=== PATIENT | female | born 1985 | race Caucasian/White ===

== ENCOUNTER 2017-07-05 09:45 | Emergency (ER) | payer BC ==
[~2017-07-05] VITALS: Ht 162.6 cm; Wt 67.9 kg
[2017-07-05 09:52] VITALS: Ht 162.6 cm; Wt 67.9 kg
[2017-07-05] MEDS ORDERED: SODIUM CHLORIDE 0.9% 1000ML 1,000 ML IV STA (10:22)
[2017-07-05] MEDS ORDERED: MoRPHine SULFATE 4 MG/ML 1 ML CARP\\VIAL IV STA (10:22)
[2017-07-05] MEDS ORDERED: ONDANSETRON INJ 2 MG/ML 2 ML VIAL IV STA (10:22)
[2017-07-05 10:41] LABS: URINE APPEARANCE CLEAR (CLEAR); URINE BILIRUBIN NEG (NEG); URINE COLOR YELLOW; URINE NITRITE NEG (NEG); URINE SPECIFIC GRAVITY 1.011 (1.000-1.030); UROBILINOGEN NEG (NEG)
[2017-07-05 10:43] LABS: MANUAL MICROSCOPIC REQUIRED? NO; REVIEW REQ? NO
[2017-07-05 10:55] LABS: BASO % 0.4 %; BASO ABS # 0.02 K/uL (0-0.2); COMPLETE YES; EOS % 0.2 %; HEMATOCRIT 41.7 % (37-47); IG% 0.4 %; LYMPH % 27.3 %; MEAN CELL VOLUME 89.7 fL (80-100); MEAN CORPUSCULAR HEMOGLOBIN 32.3 pg (25-34); MEAN PLATELET VOLUME 9.8 fL (7.4-10.4); MONO % 6.4 %; NEUT % 65.3 %; PLATELET COUNT 216 K/uL (130-400); RED BLOOD COUNT 4.65 M/uL (4.2-5.4); WHITE BLOOD COUNT 5.12 K/uL (4.8-10.8)
[2017-07-05 11:14] LABS: PREG INTERNAL POSITIVE QC POS CONTROL LINE
[2017-07-05 11:15] LABS: PREG INTERNAL NEGATIVE QC NEG CLEAR BACKGROUND
[2017-07-05 11:19] LABS: CREATININE 0.74 mg/dl (0.60-1.20); POTASSIUM 3.7 mmol/L (3.5-5.1)
[2017-07-05] MEDS ORDERED: OPTIRAY 320 IV PRN (11:45)
[2017-07-05] MEDS ORDERED: PATIENT'S ALLERGY INFO NEEDS ENTERED SCH (12:00)
[2017-07-05] MEDS ORDERED: MoRPHine SULFATE 10 MG/ML CARP/VIAL IM STA (12:10)
[2017-07-05] MEDS ORDERED: PROMETHAZINE HCL INJ 25 MG in SODIUM CHLORIDE 0.9% 50ML 50 ML IV STA (12:10)
[2017-07-05] MEDS ORDERED: MoRPHine SULFATE 10 MG/ML CARP/VIAL IV STA (12:37)
[2017-07-05] MEDS ORDERED: SUCRALFATE 1 GM/10 ML UDC PO ONE (13:30)
[2017-07-05] MEDS ORDERED: GI COCKTAIL PO ONE (13:30)
--- NOTE | 2017-07-05 13:59 | DIAGNOSTIC IMAGING REPORT ---
ABD/PELVIS IV CONTRAST ONLY CT DOSE: 380.73 mGy.cm HISTORY: Pain upper abd pain on right; s/p tyshawn TECHNIQUE: Multiaxial CT images of the abdomen and pelvis were performed following the use of intravenous contrast. A dose lowering technique was utilized adhering to the principles of ALARA. COMPARISON STUDY: None. FINDINGS: Lung bases are clear. Liver is uniform in appearance. There has been a cholecystectomy. Pancreas is unremarkable as is the spleen. Kidneys enhance uniformly. There are negative for hydronephrosis. Bowel pattern is considered nonobstructive. There is probably mild increase in fecal load within the a sending colon as well as sigmoid. There is no evidence for fecal impaction. There is 2.5 cm complex and a partially hemorrhagic right ovarian cyst. There is trace amount of free fluid within the pelvic cul-de-sac. Bladder is midline. IMPRESSION: 1. 2.5 cm partially complex and/or partially hemorrhagic right ovarian cyst.. 2. Nonobstructive bowel pattern although in increase in fecal load is identified within the cecum and a sending colon. 3. Otherwise negative study post cholecystectomy. The above report was generated using voice recognition software. It may contain grammatical, syntax or spelling errors. Electronically signed by: Ramón Sarabia M.D. 07/05/2017 1:57 PM Dictated Date/Time: 07/05/2017 1:55 PM
[2017-07-05] MEDS ORDERED: MAGNESIUM CITRATE 296 ML/BTL PO ONE (14:30)
[2017-07-05] MEDS ORDERED: PRLSR20 PO (14:39)
[2017-07-05] MEDS ORDERED: ALUMINUM/MAGNESIUM SUSP 30 ML UDC ONE (15:02)
[2017-07-05] MEDS ORDERED: LIDOCAINE HCL 2% VISC SOLN 20 ML UDC ONE (15:02)
[2017-07-05 15:16] VITALS: BP 112/73; PULSE 68; TEMP 37; O2SAT 93
--- NOTE | 2017-07-05 16:59 | EMERGENCY ROOM VISIT NOTE ---
ED Visit Note First contact with patient: 09:57 Chief Complaint: Right sided abdominal pain. History of Present Illness: Ms. Dowell is a 31 year-old white female who ambulates into the ED accompanied by her complaining of mid right quadrant abdominal pain. Historically patient reports that is postcholecystectomy. Patient reports she' s been evaluated by multiple professionals over the last few weeks. She was seen at the [facility] ED twice in the last week one for palpitations with no definitive cause and once for right sided abdominal pain without a cause. She also reports she was seen by her MACHINE LOAD CLERK doctor which a pelvic ultrasound showed that her right ovary was attached to her uterus and she had a fibroid. She was seen by her radiologist to ultrasound her thyroid for elevated TSH and no lesion was found. Additionally she was seen by a grip wrapper for an echocardiogram and results are pending. Patient reports a acute onset of mid right quadrant abdominal pain that started approximately 2 weeks ago. Since that time the pain has been on stent. She is unable to describe her baseline pain but does report that it does slightly increase and become sharp. Her pain does slightly radiate around to the lateral aspect of the abdomen and into the thoracic back. Her pain worsens with movements of her abdomen. She has not identified any alleviating factors related to the pain. Associated with her pain she reports she feels like she has enlargement around her rectal area that was slightly relieved when she had a large bowel movement. Additionally she reports she has to strain to move her stool. She also notes a decrease in appetite and reports she has not been able to sleep the last 2 nights because of her symptoms. She reports that she currently has stopped all of her medications because she did not feel they were helping and has not taken any additional medications for her symptoms. Patient denies fevers, chills, sweats, skin eruptions, skin color changes, upper respiratory tract symptoms, shortness of breath, chest pain, nausea, vomiting, diarrhea, rectal bleeding, black/tarry stools, urinary symptoms, hematuria, vaginal bleeding, vaginal discharge. Review of Systems: As noted above in history of present illness. All body systems were reviewed and found to be negative as noted above. Past Medical History: As noted above, depression, status post EGD, section 2, tubal ligation, unspecified dental surgery. Current Medications: Citalopram, Naprosyn and metoprolol. Allergies to Medications: Patient denies. Social History: Patient is not currently employed; she feels safe in her home environment; she denies tobacco use and alcohol use. Physical Examination: Vital Signs: Date Time Temp Pulse Resp B/P (MAP) Pulse Ox O2 Delivery O2 Flow Rate FiO2 07/05/17 15:16 37.0 68 16 112/73 93 07/05/17 13:57 112/73 07/05/17 13:15 68 16 93 07/05/17 12:45 64 7 96 07/05/17 12:32 67 07/05/17 12:30 68 18 128/60 93 Room Air 07/05/17 12:28 128/80 07/05/17 11:30 92 18 110/77 98 Room Air 07/05/17 09:52 37.0 95 18 128/80 98 Room Air GENERAL: 31-year-old female in mild to moderate distress due to pain, nontoxic- appearing, afebrile and hemodynamically stable. NEUROLOGICAL: Awake, alert and oriented to person, place and time. Answering questions appropriately and following commands. Normal gait. Good hand eye coordination. SKIN: Warm, dry and pink. No soft tissue eruptions or trauma noted. HEENT: Atraumatic and normocephalic. PERRLA. Sclera white and conjunctiva pink. Oral cavity moist and pink. Pharynx is nonerythematous or edematous. Speech normal. No lymphadenopathy. Trachea midline. No jugular venous distention. BACK: No tenderness over the bony spine. No CVA tenderness. THORAX: Lungs sounds are clear to auscultation and equal bilaterally with symmetrical chest wall. No wheezing, rales or rhonchi. No crepitus, tenderness , subcutaneous air or deformities noted. HEART: Regular rate and rhythm. No gallops, rubs or murmurs are appreciated. ABDOMEN: Flat, soft and nontender. Positive bowel sounds in all quadrants. No guarding, rigidity or organomegaly. RECTUM: Small external hemorrhoid noted at the 7 o'clock position. No active bleeding. No local erythema or edema. Normal rectal tone. No palpable rectal masses. Heme-negative stools. EXTREMITIES: Moves all extremities well on command and with purpose. All distal neurovascular statuses are intact and equal bilaterally. ED Course: Patient is assessed as noted above. Laboratory Testing: Test 07/05/17 10:25 Range/Units White Blood Count 5.12 4.8-10.8 K/uL Red Blood Count 4.65 4.2-5.4 M/uL Hemoglobin 15.0 12.0-16.0 g/dL Hematocrit 41.7 37-47 % Mean Corpuscular Volume 89.7 80-100 fL Mean Corpuscular Hemoglobin 32.3 25-34 pg Mean Corpuscular Hemoglobin Concent 36.0 32-36 g/dl Platelet Count 216 130-400 K/uL Mean Platelet Volume 9.8 7.4-10.4 fL Neutrophils (%) (Auto) 65.3 % Lymphocytes (%) (Auto) 27.3 % Monocytes (%) (Auto) 6.4 % Eosinophils (%) (Auto) 0.2 % Basophils (%) (Auto) 0.4 % Neutrophils # (Auto) 3.34 1.4-6.5 K/uL Lymphocytes # (Auto) 1.40 1.2-3.4 K/uL Monocytes # (Auto) 0.33 0.11-0.59 K/uL Eosinophils # (Auto) 0.01 0-0.5 K/uL Basophils # (Auto) 0.02 0-0.2 K/uL RDW Standard Deviation 39.1 36.4-46.3 fL RDW Coefficient of Variation 12.1 11.5-14.5 % Immature Granulocyte % (Auto) 0.4 % Immature Granulocyte # (Auto) 0.02 0.00-0.02 K/uL Urine Color YELLOW Urine Appearance CLEAR CLEAR Urine pH 7.0 4.5-7.5 Urine Specific [place] 1.011 1.000-1.030 Urine Protein NEG NEG Urine Glucose (UA) NEG NEG Urine Ketones TRACE NEG Urine Occult Blood NEG NEG Urine Nitrite NEG NEG Urine Bilirubin NEG NEG Urine Urobilinogen NEG NEG Urine Leukocyte Esterase NEG NEG Sodium Level 136 136-145 mmol/L Potassium Level 3.7 3.5-5.1 mmol/L Chloride Level 101 98-107 mmol/L Carbon Dioxide Level 25 21-32 mmol/L Anion Gap 10.0 3-11 mmol/L Blood Urea Nitrogen 10 7-18 mg/dl Creatinine 0.74 0.60-1.20 mg/dl Est Creatinine Clear Calc Drug Dose 103.4 ml/min Estimated GFR () 124.2 Estimated GFR (Non- 107.2 BUN/Creatinine Ratio 13.0 10-20 Random Glucose 97 70-99 mg/dl Calcium Level 9.0 8.5-10.1 mg/dl Total Bilirubin 0.8 0.2-1 mg/dl Direct Bilirubin 0.2 0-0.2 mg/dl Aspartate Amino Transf (AST/SGOT) 21 15-37 U/L Alanine Aminotransferase (ALT/SGPT) 29 12-78 U/L Alkaline Phosphatase 62 45-117 U/L Total Protein 8.3 6.4-8.2 gm/dl Albumin 4.1 3.4-5.0 gm/dl Lipase 208 73-393 U/L Human Chorionic Gonadotropin, Qual NEG NEG IV contrast abdominal/pelvic CT: Was reviewed by myself and read by the radiologist and shows a 2.5 cm partially complex/partially hemorrhagic right ovarian cyst, nonobstructive bowel gas pattern with increased fecal load in the cecum and ascending colon, trace amount of free pelvic fluid. Patient was hydrated with normal saline and initially received 4 mg of Zofran IV and 4 mg of morphine IV. Patient was reassessed multiple times during her stay in the emergency department. She did have exacerbation of her pain and nausea and received 6 mg of morphine and 25 mg of Phenergan. Patient's case was reviewed with Dr. Hernández; we agreed on diagnostic approach , treatment, disposition and plan. I did had a lengthy conversation with the patient and she reports that had an EGD that showed some esophageal inflammation. She was on Prilosec for short amount of time and was taken off after her colonoscopy and felt that the inflammation would go down. Patient was given a GI cocktail and 1 g of Carafate by mouth for her symptoms. Additionally patient received 150 mg of magnesium citrate by mouth for her increased fecal load. Patient was educated about today's findings and instructed on her treatment plan ; she verbalized understanding and agreement with this plan. Clinical Impression: Right sided abdominal pain. Increased constipation. Decision-Making: Initially my differential diagnosis I considered retained stone , small bowel obstruction, perforated viscus, colitis, constipation, esophageal reflux and other causes. Disposition: Patient discharged home in stable condition accompanied by her ; prior to departure she was reassessed and subjectively reported she was feeling much better and was pain-free. Plan: Patient was encouraged to keep your upcoming appointment with cardiology for review of her echocardiogram. Patient is encouraged to follow-up with her MACHINE LOAD CLERK for her ultrasound results. Patient was encouraged use 650 mg of acetaminophen every 6 hours as needed for pain and avoid gastric irritants. Patient was encouraged use Colace twice a day and increase dietary fiber/ vegetables. Patient was encouraged to take the second half of her mag citrate she did not have a large bowel movement within 4 hours. Patient is encouraged to stay well-hydrated. Patient was prescribed omeprazole 20 mg once a day. Patient is encouraged to continue her metoprolol as prescribed. Patient was encouraged to follow-up with her stone fabricator who did her EGD. Patient is encouraged to follow-up with family physician for recheck in 4-5 days. Patient was encouraged return ED for worsening symptoms, fevers, bloody stool, bloody vomitus or any new/concerning symptoms.
== END 2017-07-05 15:17 | disposition home or self-care (01) ==
LOC: C.EDB 09:48
DX: R10.9 Unspecified abdominal pain (principal); K59.00 Constipation, unspecified; K64.4 Residual hemorrhoidal skin tags; Z90.49 Acquired absence of other specified parts of digestive tract

== ENCOUNTER → 2017-10-18 | Outpatient (CLI) | payer BC | END | disposition home or self-care (01) | LOC: C.LABMFLN 11:19 | PROVIDERS: ATTEND Internal Medicine Endocrinology, Diabetes & Metabolism | DX: E06.3 Autoimmune thyroiditis (principal); E03.9 Hypothyroidism, unspecified ==

== ENCOUNTER 2023-02-24 07:24 | Inpatient (IN) ==
[2023-02-24] MEDS ORDERED: SODIUM CHLORIDE 0.9% 1000ML 1,000 ML IV STA (07:48)
[2023-02-24] MEDS ORDERED: MoRPHine SULFATE 4 MG/ML 1 ML CARP\\VIAL IV STA (07:48)
[2023-02-24] MEDS ORDERED: ONDANSETRON INJ 2 MG/ML 2 ML VIAL IV STA (07:48)
[2023-02-24 08:25] LABS: Basophils # (auto) 0.03 K/uL (0-0.2); Basophils % (auto) 0.3 %; Hematocrit (blood only) 44.4 % (37.0-47.0); Hemoglobin 15.9 g/dl (12.0-16.0); Immature Granulocytes # (auto) 0.05 K/uL (0.01-0.20); Immature Granulocytes % (auto) 0.5 %; Lymphocytes # (auto) 0.94 K/uL (1.2-3.4); Mean Corpuscular Hemoglobin 32.5 pg (25.0-34.0); Mean Corpuscular Hgb Conc 35.8 g/dL (32.0-36.0); Mean Corpuscular Volume 90.8 fL (80.0-100.0); Mean Platelet Volume 9.8 fL (9.4-12.4); Monocytes # (auto) 0.36 K/uL (0.11-0.59); Monocytes % (auto) 3.8 %; Neutrophils # (auto) 8.01 K/uL (1.40-6.50); Neutrophils % (auto) 85.4 %; Platelet Count 258 K/uL (130-400); RDW Coefficient of Variation 11.4 % (11.5-14.5); RDW Standard Deviation 37.8 fL (36.4-46.3); Red Blood Count 4.89 M/uL (4.20-5.40); White Blood Count 9.39 K/ul (4.8-10.8)
--- NOTE | 2023-02-24 08:25 | Emergency Department Note ---
ED Provider Note History of Present Illness Chief Complaint: Abdominal Pain Stated Complaint: LEFT SIDED ABDOMINAL PAIN Time Seen by Provider: 02/24/23 07:34 37-year-old female who presents to the emergency department with her for evaluation of left lower quadrant and lower abdominal pain. The patient reports that the pain started to develop yesterday morning. The patient does have history of constipation, and did try to take some milk of magnesia which provided some relief. She also tried some Gas-X, Pepcid and Pepto-Bismol without relief. The patient reports that the pain initially was intermittent in nature, and is now constant. She denies any alleviating or aggravating factors for the pain. She has a sensation like she does have to have a bowel movement and urinate. She denies any other recent urinary symptoms, tarry/black stools or bloody stools. The patient reports that her stools are yellowish in appea meghan. Patient reports a prior history of adhesions secondary to history of 2 prior C-sections and subsequent hysterectomy. The patient has also followed with [facility] gastroenterology, with a recent colonoscopy showing internal and external hemorrhoids. When asked if she was advised that she had any diverticula, she does not recall. The patient currently rates her discomfort an 8 out of 10. The patient did have similar symptoms a little over 4 months ago, and was seen at the [facility] emergency department. Home Medications Medication Instructions Recorded Confirmed Type inulin 2 gram chewable tablet 4 g PO QAM 02/24/23 02/24/23 History (Fiber Gummies) lactobacillus combination no.4 3 3,000 mmu cells PO DAILY 02/24/23 02/24/23 History billion cell capsule (Probiotic) linaclotide 145 mcg capsule 145 mcg PO DAILY 02/24/23 02/24/23 History (Linzess) -omn-nxo-other [id number] 2 cap PO QAM 02/24/23 02/24/23 History oil 350 mg- 400 mg capsule omeprazole 20 mg capsule,delayed 40 mg PO QAM 02/24/23 02/24/23 History release potassium chloride 10 mEq 25 meq PO DAILY 02/24/23 02/24/23 History tablet,extended release Allergies Allergy/AdvReac Type Severity Reaction Status Date / Time adhesive Allergy Unknown blister Verified 02/24/23 10:30 Past Med/Surg History Medical History Radha's thyroiditis Hypothyroidism Intra-abdominal adhesions Surgical History History of 2 sections History of partial hysterectomy Hx of cholecystectomy S/P laparoscopic procedure adhesion release Social History (Updated 02/24/23 @ 08:24 by Nixon Resendiz) Smoking Status: Never smoker Preferred Language: Andorran marital status: Current Living Situation: Spouse and Family current occupational status: employed Feels Safe at Home: Yes Physical Exam Vital Signs Vital Signs - 24 hr 02/24/23 07:29 02/24/23 07:25 02/24/23 08:33 Temperature 36.7 C Temperature Source Oral Pulse Rate 96 H 70 Pulse Rate [Apical] 76 Pulse Rate from SpO2 Sensor Respiratory Rate 18 22 Respiratory Effort / Characteristics Non-Labored Spontaneous Non-Labored Respiratory Depth Normal Normal Respiratory Pattern Regular Blood Pressure 148/84 H Blood Pressure [Right Arm] 133/85 Blood Pressure Mean 105 Blood Pressure Mean [Right Arm] 101 Pulse Oximetry 99 97 Oxygen Delivery Method Room Air Room Air Sepsis Recent Fever Within 48 Hours No Sepsis New/Unexplained Change in Mental Status N/A Sepsis Action Taken by Nursing No Action Required 02/24/23 09:25 02/24/23 08:19 02/24/23 08:20 Temperature Temperature Source Pulse Rate 78 75 Pulse Rate [Apical] 82 Pulse Rate from SpO2 Sensor 77 74 Respiratory Rate 12 22 14 Respiratory Effort / Characteristics Respiratory Depth Normal Respiratory Pattern Blood Pressure Blood Pressure [Right Arm] 135/88 Blood Pressure Mean Blood Pressure Mean [Right Arm] 103 Pulse Oximetry 98 95 97 Oxygen Delivery Method Room Air Sepsis Recent Fever Within 48 Hours Sepsis New/Unexplained Change in Mental Status Sepsis Action Taken by Nursing 02/24/23 08:31 02/24/23 08:31 02/24/23 08:40 Temperature Temperature Source Pulse Rate 80 71 Pulse Rate [Apical] Pulse Rate from SpO2 Sensor 70 Respiratory Rate 13 15 Respiratory Effort / Characteristics Respiratory Depth Respiratory Pattern Blood Pressure 139/85 Blood Pressure [Right Arm] Blood Pressure Mean 95 Blood Pressure Mean [Right Arm] Pulse Oximetry 99 Oxygen Delivery Method Sepsis Recent Fever Within 48 Hours Sepsis New/Unexplained Change in Mental Status Sepsis Action Taken by Nursing 02/24/23 08:45 02/24/23 08:45 02/24/23 08:50 Temperature Temperature Source Pulse Rate 73 79 Pulse Rate [Apical] Pulse Rate from SpO2 Sensor 74 77 Respiratory Rate 22 23 Respiratory Effort / Characteristics Respiratory Depth Respiratory Pattern Blood Pressure 135/88 Blood Pressure [Right Arm] Blood Pressure Mean 105 Blood Pressure Mean [Right Arm] Pulse Oximetry 100 100 Oxygen Delivery Method Sepsis Recent Fever Within 48 Hours Sepsis New/Unexplained Change in Mental Status Sepsis Action Taken by Nursing 02/24/23 09:00 02/24/23 09:10 02/24/23 09:20 Temperature Temperature Source Pulse Rate 69 68 73 Pulse Rate [Apical] Pulse Rate from SpO2 Sensor 68 68 73 Respiratory Rate 23 21 24 Respiratory Effort / Characteristics Respiratory Depth Respiratory Pattern Blood Pressure Blood Pressure [Right Arm] Blood Pressure Mean Blood Pressure Mean [Right Arm] Pulse Oximetry 100 100 100 Oxygen Delivery Method Sepsis Recent Fever Within 48 Hours Sepsis New/Unexplained Change in Mental Status Sepsis Action Taken by Nursing 02/24/23 09:41 02/24/23 09:50 02/24/23 10:00 Temperature Temperature Source Pulse Rate 76 76 Pulse Rate [Apical] Pulse Rate from SpO2 Sensor 73 76 77 Respiratory Rate 18 18 Respiratory Effort / Characteristics Respiratory Depth Respiratory Pattern Blood Pressure Blood Pressure [Right Arm] Blood Pressure Mean Blood Pressure Mean [Right Arm] Pulse Oximetry 100 97 99 Oxygen Delivery Method Sepsis Recent Fever Within 48 Hours Sepsis New/Unexplained Change in Mental Status Sepsis Action Taken by Nursing 02/24/23 10:10 02/24/23 10:20 02/24/23 10:30 Temperature Temperature Source Pulse Rate 74 73 73 Pulse Rate [Apical] Pulse Rate from SpO2 Sensor 76 73 71 Respiratory Rate 20 15 12 Respiratory Effort / Characteristics Respiratory Depth Respiratory Pattern Blood Pressure Blood Pressure [Right Arm] Blood Pressure Mean Blood Pressure Mean [Right Arm] Pulse Oximetry 99 100 98 Oxygen Delivery Method Sepsis Recent Fever Within 48 Hours Sepsis New/Unexplained Change in Mental Status Sepsis Action Taken by Nursing 02/24/23 10:40 02/24/23 10:50 02/24/23 11:00 Temperature Temperature Source Pulse Rate 68 63 59 L Pulse Rate [Apical] Pulse Rate from SpO2 Sensor 67 64 60 Respiratory Rate 14 13 13 Respiratory Effort / Characteristics Respiratory Depth Respiratory Pattern Blood Pressure Blood Pressure [Right Arm] Blood Pressure Mean Blood Pressure Mean [Right Arm] Pulse Oximetry 98 97 97 Oxygen Delivery Method Sepsis Recent Fever Within 48 Hours Sepsis New/Unexplained Change in Mental Status Sepsis Action Taken by Nursing 02/24/23 11:10 02/24/23 11:11 02/24/23 11:11 Temperature Temperature Source Pulse Rate 67 Pulse Rate [Apical] Pulse Rate from SpO2 Sensor 71 68 Respiratory Rate 16 Respiratory Effort / Characteristics Respiratory Depth Respiratory Pattern Blood Pressure 113/70 Blood Pressure [Right Arm] Blood Pressure Mean 76 Blood Pressure Mean [Right Arm] Pulse Oximetry 98 96 Oxygen Delivery Method Sepsis Recent Fever Within 48 Hours Sepsis New/Unexplained Change in Mental Status Sepsis Action Taken by Nursing 02/24/23 13:00 02/24/23 11:20 02/24/23 11:30 Temperature Temperature Source Pulse Rate 76 66 66 Pulse Rate [Apical] Pulse Rate from SpO2 Sensor 76 66 65 Respiratory Rate 16 14 14 Respiratory Effort / Characteristics Respiratory Depth Respiratory Pattern Blood Pressure 110/72 Blood Pressure [Right Arm] Blood Pressure Mean 84 Blood Pressure Mean [Right Arm] Pulse Oximetry 97 97 97 Oxygen Delivery Method Room Air Sepsis Recent Fever Within 48 Hours Sepsis New/Unexplained Change in Mental Status Sepsis Action Taken by Nursing 02/24/23 11:40 02/24/23 12:27 02/24/23 12:30 Temperature Temperature Source Pulse Rate 68 62 Pulse Rate [Apical] Pulse Rate from SpO2 Sensor 68 62 Respiratory Rate 17 20 Respiratory Effort / Characteristics Respiratory Depth Respiratory Pattern Blood Pressure 110/72 Blood Pressure [Right Arm] Blood Pressure Mean 81 Blood Pressure Mean [Right Arm] Pulse Oximetry 97 99 Oxygen Delivery Method Sepsis Recent Fever Within 48 Hours Sepsis New/Unexplained Change in Mental Status Sepsis Action Taken by Nursing 02/24/23 12:40 02/24/23 12:50 02/24/23 13:00 Temperature Temperature Source Pulse Rate 64 61 78 Pulse Rate [Apical] Pulse Rate from SpO2 Sensor 62 62 79 Respiratory Rate 14 14 17 Respiratory Effort / Characteristics Respiratory Depth Respiratory Pattern Blood Pressure Blood Pressure [Right Arm] Blood Pressure Mean Blood Pressure Mean [Right Arm] Pulse Oximetry 99 99 100 Oxygen Delivery Method Sepsis Recent Fever Within 48 Hours Sepsis New/Unexplained Change in Mental Status Sepsis Action Taken by Nursing 02/24/23 13:10 02/24/23 13:20 02/24/23 13:30 Temperature Temperature Source Pulse Rate 77 67 65 Pulse Rate [Apical] Pulse Rate from SpO2 Sensor 75 67 64 Respiratory Rate 15 20 14 Respiratory Effort / Characteristics Respiratory Depth Respiratory Pattern Blood Pressure Blood Pressure [Right Arm] Blood Pressure Mean Blood Pressure Mean [Right Arm] Pulse Oximetry 100 98 99 Oxygen Delivery Method Sepsis Recent Fever Within 48 Hours Sepsis New/Unexplained Change in Mental Status Sepsis Action Taken by Nursing 02/24/23 13:40 02/24/23 13:50 02/24/23 14:00 Temperature Temperature Source Pulse Rate 61 57 L 56 L Pulse Rate [Apical] Pulse Rate from SpO2 Sensor 62 57 L 57 L Respiratory Rate 20 13 15 Respiratory Effort / Characteristics Respiratory Depth Respiratory Pattern Blood Pressure Blood Pressure [Right Arm] Blood Pressure Mean Blood Pressure Mean [Right Arm] Pulse Oximetry 98 98 98 Oxygen Delivery Method Sepsis Recent Fever Within 48 Hours Sepsis New/Unexplained Change in Mental Status Sepsis Action Taken by Nursing 02/24/23 14:10 02/24/23 14:22 02/24/23 14:30 Temperature Temperature Source Pulse Rate 57 L 69 65 Pulse Rate [Apical] Pulse Rate from SpO2 Sensor 57 L 65 Respiratory Rate 14 18 12 Respiratory Effort / Characteristics Respiratory Depth Respiratory Pattern Blood Pressure Blood Pressure [Right Arm] Blood Pressure Mean Blood Pressure Mean [Right Arm] Pulse Oximetry 98 99 Oxygen Delivery Method Sepsis Recent Fever Within 48 Hours Sepsis New/Unexplained Change in Mental Status Sepsis Action Taken by Nursing 02/24/23 14:40 02/24/23 14:45 02/24/23 14:45 Temperature Temperature Source Pulse Rate 57 L 70 Pulse Rate [Apical] Pulse Rate from SpO2 Sensor 58 L 72 Respiratory Rate 12 20 Respiratory Effort / Characteristics Respiratory Depth Respiratory Pattern Blood Pressure 113/79 Blood Pressure [Right Arm] Blood Pressure Mean 84 Blood Pressure Mean [Right Arm] Pulse Oximetry 99 99 Oxygen Delivery Method Sepsis Recent Fever Within 48 Hours Sepsis New/Unexplained Change in Mental Status Sepsis Action Taken by Nursing 02/24/23 14:50 02/24/23 15:13 Temperature Temperature Source Pulse Rate 62 Pulse Rate [Apical] Pulse Rate from SpO2 Sensor 63 Respiratory Rate 16 Respiratory Effort / Characteristics Respiratory Depth Respiratory Pattern Blood Pressure Blood Pressure [Right Arm] Blood Pressure Mean Blood Pressure Mean [Right Arm] Pulse Oximetry 99 Oxygen Delivery Method Room Air Sepsis Recent Fever Within 48 Hours Sepsis New/Unexplained Change in Mental Status Sepsis Action Taken by Nursing CONSTITUTIONAL: Healthy and well nourished. Patient appears in mild discomfort HEENT: No scleral icterus or conjunctival injection/pallor. RESPIRATORY: Clear to auscultation bilaterally with no wheezing, crackles, rhonchi or stridor. CARDIOVASCULAR: Regular rate and rhythm with no murmurs, rubs or gallops. GASTROINTESTINAL: Bowel sounds present in all quadrants. Patient has diffuse left lower quadrant and lower abdominal tenderness to palpation without rigidity, guarding or rebound. Negative McBurney's point tenderness. Negative CVA tenderness. MUSCULOSKELETAL: Full range of motion of all joints without discomfort. INTEGUMENTARY: No rash or other significant dermatologic conditions noted. HEMATOLOGIC: No ecchymosis or petechiae. PSYCHIATRIC: Positive affect. NEUROLOGIC: No focal neurologic deficits noted. Course Course Patient history and physical exam were performed. Nurses notes were reviewed. Vital signs were reviewed from triage and were normal. IV access was establ ished, and labs are drawn. The patient was hydrated with a liter normal saline, and initially administered IV morphine and Zofran. I did recommend CT imaging with both oral and IV contrast, and the patient was in agreement. Shortly after she started to drink her oral contrast, she reported severe and sharp pain within the upper abdomen. At this point, the patient CT scan was changed to IV contrast only. Labs were reviewed, showing a normal white count, hemoglobin and CMP test results other than a mild hypokalemia. Glucose was also mildly elevated at 112. Urinalysis was negative. CT with IV contrast showed a possible left hemorrhagic ovarian cyst with blood products within the pelvis. Findings were discussed with the patient, as well as Dr. Belcher, PHYSICIAN CODER on- call. Given the patient's CT findings, and concern for possible bleeding, as well as possibility of ovarian torsion, she did recommend repeating her hemoglobin in 3 hours, and performing a pelvic ultrasound. The patient reported good pain control, refusing any additional analgesics. Pelvic ultrasound was performed, and was not suggestive of an ovarian torsion. Ultrasound did show evidence for a probable hemorrhagic cyst with small to moderate amount of complex fluids within the pelvic cul-de-sac and left adnexa, consistent with hemoperitoneum. Prior hysterectomy and right oophorectomy are also appreciated. Repeat 3-hour hemoglobin shows a 2.2 point drop. Findings were discussed with Dr. Belcher, who came to the emergency department to evaluate the patient. At this point, she indicated that she would prefer to keep the patient in observation to recheck her hemoglobin, and make a decision on whether or not the patient can follow-up outpatient, or will require further surgical intervention. Please see Dr. Belcher's dictation for further treatment and final disposition. The patient will be transferred to the floor for further PHYSICIAN CODER observation and management. The patient refused any additional a nalgesics prior to transfer to the floor. Administered Medications Discontinued Medications Fentanyl Citrate (Fentanyl Citrate Pf 100 Mcg/2 Ml Vial) 100 mcg IV NOW STA Stop: 02/24/23 09:18 Last Admin: 02/24/23 09:20 Dose: 100 mcg Documented By: BALDO Sodium Chloride (Nss 1000ml) 1,000 mls @ 999 mls/hr IV .Q1H1M STA Stop: 02/24/23 08:48 Last Infusion: 02/24/23 09:15 Dose: 0 mls/hr Documented By: Admin: 02/24/23 08:09 Dose: 999 mls/hr Documented By: CHRISTEN Ioversol (Optiray 320 100ml) 94 ml IV ONCE ONE Stop: 02/24/23 09:33 Last Admin: 02/24/23 09:32 Dose: 94 ml Documented By: ELLE Morphine Sulfate (Morphine Sulfate 4 Mg/Ml 1 Ml Carp\Vial) 4 mg IV NOW STA Stop: 02/24/23 07:49 Last Admin: 02/24/23 08:09 Dose: 4 mg Documented By: CHRISTEN Ondansetron HCl (Ondansetron Inj 2 Mg/Ml 2 Ml Vial) 4 mg IV NOW STA Stop: 02/24/23 07:49 Last Admin: 02/24/23 08:09 Dose: 4 mg Documented By: CHRISTEN Medical Decision Making Medical Records Attestation: I reviewed the patient's medical records. Home Medications was personally reviewed by Laboratory Data Attestation: I reviewed the patient's lab results. 02/24/23 08:00 02/24/23 08:00 Lab Results 02/24/23 02/24/23 02/24/23 Range/Units 08:00 08:00 08:00 WBC 9.39 (4.8-10.8) K/ul RBC 4.89 (4.20-5.40) M/uL Hgb 15.9 (12.0-16.0) g/dl Hct 44.4 (37.0-47.0) % MCV 90.8 (80.0-100.0) fL MCH 32.5 (25.0-34.0) pg MCHC 35.8 (32.0-36.0) g/dL RDW Std Deviation 37.8 (36.4-46.3) fL RDW Coeff of Tran 11.4 L (11.5-14.5) % Plt Count 258 (130-400) K/uL MPV 9.8 (9.4-12.4) fL Immature Gran % (Auto) 0.5 % Neut % (Auto) 85.4 % Lymph % (Auto) 10.0 % [place] % (Auto) 3.8 % Eos % (Auto) 0.0 % Baso % (Auto) 0.3 % Neut # (Auto) 8.01 H (1.40-6.50) K/uL Lymph # (Auto) 0.94 L (1.2-3.4) K/uL [place] # (Auto) 0.36 (0.11-0.59) K/uL Eos # (Auto) 0.00 (0-0.50) K/uL Baso # (Auto) 0.03 (0-0.2) K/uL Immature Gran # (Auto) 0.05 (0.01-0.20) K/uL Sodium 133 L (136-145) mmol/L Potassium 3.5 (3.5-5.1) mmol/L Chloride 99 (98-107) mmol/L Carbon Dioxide 28 (21-32) mmol/L Anion Gap 6 (3-11) BUN 10 (6-23) mg/dl Creatinine 0.75 (0.6-1.2) mg/dl Est Cr Clr Drug Dosing 109.0 ml/min Est GFR ( Amer) 117.2 ml/min Est GFR (Non-Af Amer) 101.1 ml/min BUN/Creatinine Ratio 13.3 (10-20) Glucose 112 H (70-99(Fasting)) mg/dl Calcium 9.5 (8.6-10.3) mg/dl Total Bilirubin 0.8 (0.2-1.0) mg/dl AST 27 (13-39) U/L ALT 28 (7-52) U/L Alkaline Phosphatase 62 (34-104) U/L Total Protein 8.3 (6.0-8.3) gm/dl Albumin 4.7 (3.4-5.0) gm/dl Globulin 3.6 (2.5-4.0) gm/dl Albumin/Globulin Ratio 1.3 (0.9-2) Lipase 28 (11-82) U/L Urine Color Yellow Urine Appearance Clear (Clear) Urine pH 7.5 (4.5-7.5) Ur Specific [place] 1.002 (1.000-1.030) Urine Protein Negative (Negative) Urine Glucose (UA) Negative (Negative) Urine Ketones Negative (Negative) Urine Blood Negative (Negative) Urine Nitrite Negative (Negative) Urine Bilirubin Negative (Negative) Urine Urobilinogen Negative (Negative) Ur Leukocyte Esterase Negative (Negative) 02/24/23 Range/Units 11:14 WBC (4.8-10.8) K/ul RBC (4.20-5.40) M/uL Hgb 13.7 (12.0-16.0) g/dl Hct 38.8 (37.0-47.0) % MCV (80.0-100.0) fL MCH (25.0-34.0) pg MCHC (32.0-36.0) g/dL RDW Std Deviation (36.4-46.3) fL RDW Coeff of Tran (11.5-14.5) % Plt Count (130-400) K/uL MPV (9.4-12.4) fL Immature Gran % (Auto) % Neut % (Auto) % Lymph % (Auto) % [place] % (Auto) % Eos % (Auto) % Baso % (Auto) % Neut # (Auto) (1.40-6.50) K/uL Lymph # (Auto) (1.2-3.4) K/uL [place] # (Auto) (0.11-0.59) K/uL Eos # (Auto) (0-0.50) K/uL Baso # (Auto) (0-0.2) K/uL Immature Gran # (Auto) (0.01-0.20) K/uL Sodium (136-145) mmol/L Potassium (3.5-5.1) mmol/L Chloride (98-107) mmol/L Carbon Dioxide (21-32) mmol/L Anion Gap (3-11) BUN (6-23) mg/dl Creatinine (0.6-1.2) mg/dl Est Cr Clr Drug Dosing ml/min Est GFR ( Amer) ml/min Est GFR (Non-Af Amer) ml/min BUN/Creatinine Ratio (10-20) Glucose (70-99(Fasting)) mg/dl Calcium (8.6-10.3) mg/dl Total Bilirubin (0.2-1.0) mg/dl AST (13-39) U/L ALT (7-52) U/L Alkaline Phosphatase (34-104) U/L Total Protein (6.0-8.3) gm/dl Albumin (3.4-5.0) gm/dl Globulin (2.5-4.0) gm/dl Albumin/Globulin Ratio (0.9-2) Lipase (11-82) U/L Urine Color Urine Appearance (Clear) Urine pH (4.5-7.5) Ur Specific [place] (1.000-1.030) Urine Protein (Negative) Urine Glucose (UA) (Negative) Urine Ketones (Negative) Urine Blood (Negative) Urine Nitrite (Negative) Urine Bilirubin (Negative) Urine Urobilinogen (Negative) Ur Leukocyte Esterase (Negative) Imaging Data Attestation: I personally reviewed and interpreted this imaging study as follows: My Impression: My interpretation of the CT with IV contrast of the abdomen and pelvis shows a possible left hemorrhagic ovarian cyst with blood products within the lower pelvic region. No bowel obstruction, abdominal free air or diverticulitis appreciated. My interpretation of a pelvic ultrasound shows a possible left hemorrhagic ovarian cyst with blood products within the pelvis. Radiologist reports were also reviewed with concurrence. Radiologist's Impression: Abdomen/Pelvis CT 02/24/23 09:[address] WITH IV CONTRAST CT DOSE: 1361.47 mGy.cm HISTORY: Left-sided abdominal pain. TECHNIQUE: Multiaxial CT images of the abdomen and pelvis were performed f ollowing the use of intravenous contrast. A dose lowering technique was utilized adhering to the principles of ALARA. COMPARISON STUDY: Abdomen and pelvis CT 07/05/2017. FINDINGS: The lung bases are clear. No pneumoperitoneum. No pneumatosis. No ac [place] fractures. Prior cholecystectomy. No hepatic or splenic masses. The adrenal glands, pancreas, and kidneys are unremarkable. No hydronephrosis. The main portal vein is patent. Normal caliber abdominal aorta. No retroperitoneal or pelvic lymphadenopathy. Normal bladder. No bowel wall thickening or obstruction. Normal appendix. Prior hysterectomy. Lobular heterogeneous structure within the left adnexa best seen on image 288 measuring approximate 6.8 x 4.5 cm. This favors the left ovary. This contains a few small cysts with the dominant thick- walled cyst on image 291 measuring 2.9 cm. Small amount of hyperdense material seen anterior to the mildly enlarged left ovary on image 289 suggestive of blood clot. There is a small amount of fluid within the pelvis demonstrating a hematocrit level consistent with blood products. Therefore, these findings likely represent a ruptured left ovarian hemorrhagic cyst. Trace fluid within the paracolic gutters. IMPRESSION: 1. A 6.8 x 4.5 cm lobular heterogeneous structure within the left adnexa which likely represents the left ovary. This contains a few cysts with the dominant thick-walled cyst measuring 2.9 cm. There is a small amount of hyperdense material seen anterior to the mildly enlarged left ovary suggestive of clot as well as a small amount of hemoperitoneum within the deep pelvis. Therefore, these findings favor a ruptured left ovarian hemorrhagic cyst. 2. Left ovarian torsion is considered less likely but also considered in the differential diagnosis. Clinical correlation recommended. 3. Prior hysterectomy. 4. No bowel wall thickening or obstruction. 5. Normal appendix. 6. Prior cholecystectomy. ACT 112: Negative or not required by law. Electronically signed by: Nicholas Ayala M.D. 02/24/2023 9:52 AM Pelvis Ultrasound 02/24/23 10:12 PELVIC ULTRASOUND, TRANSABDOMINAL AND TRANSVAGINAL HISTORY: Hemorrhagic left ovarian cyst versus torsion COMPARISON: Abdomen and pelvis CT 02/24/2023. FINDINGS: Uterus: Surgically absent. Right ovary: Surgically absent. Left ovary: 7.3 x 5.7 x 4.5 cm. This contains a few small follicles/cysts. There is also a 2.9 cm cyst containing internal echoes and thin septations suggestive of a hemorrhagic cyst. This corresponds to the CT abnormality. Small to moderate amount of complex fluid surrounding the left ovary and within the pelvic cul-de-sac. This corresponds to the CT abnormality and is consistent with blood products/hemoperitoneum. There is normal color flow within the left ovary. IMPRESSION: 1. The left ovary remains mildly enlarged and contains a few small follicles/cysts including a 2.9 cm complex cyst suggestive of a hemorrhagic cyst. 2. There is color flow identified within the left ovary. Therefore, ovarian torsion is considered less likely but not entirely excluded. Clinical correlati on recommended. 3. Small to moderate amount of complex fluid within the pelvic cul-de-sac and left adnexa consistent with blood products/hemoperitoneum. This favors a ruptured hemorrhagic cyst. 4. Prior hysterectomy and right oophorectomy. ACT 112: Negative or not required by law. Electronically signed by: Nicholas Ayala M.D. 02/24/2023 12:58 PM MDM Narrative See ED Course section for further details of today's visit. The patient presents with complaint of severe left lower quadrant and lower abdominal pain. CT and ultrasound imaging today are most suggestive of a hemorrhagic left ovarian cyst with small hemoperitoneum. Ultrasound is not suggestive of ovarian torsion. CT also does not show evidence for diverticulitis, bowel obstruction, abdominal free air, appendicitis or other acute findings. The patient did have a 2.2 point drop in her hemoglobin over 3 hours, however this may have also been influenced by IV hydration. The patient will undergo an observation period with PHYSICIAN CODER to further watch her hemoglobin, and if it continues to drop, will likely require surgical intervention. Impression Hemorrhagic cyst of left ovary, Nontraumatic hemoperitoneum, Left lower quadrant abdominal pain Discharge Plan Visit Data Chief Complaint: Abdominal Pain Stated Complaint: LEFT SIDED ABDOMINAL PAIN ED Provider: Ramón Peraza ED Midlevel Provider: Nixon Resendiz Discharge Problem: Hemorrhagic cyst of left ovary, Nontraumatic hemoperitoneum, Left lower quadrant abdominal pain Patient Disposition: Admitted As Inpatient Discharge Instructions Interventions: ED Discharge Assessment Last Done: 02/24/23 15:13 Forms Stand Alone Forms: My [facility] [employer] Prescriptions Prescriptions: No Action potassium chloride 10 mEq Tablet Extended Release 25 meq PO DAILY omeprazole 20 mg capsule,delayed release(DR/EC) 40 mg PO QAM [place] 3 350-400 mg Capsule 2 cap PO QAM Linzess 145 mcg capsule 145 mcg PO DAILY Probiotic 3 billion cell Capsule 3,000 mmu cells PO DAILY Rx Instructions: administer with a meal Fiber Gummies 2 gram Tablet,Chewable 4 g PO QAM Referrals Referrals: Debby Joy DO [Primary Care Provider] -
[2023-02-24 08:37] LABS: Albumin Globulin Ratio 1.3 (0.9-2); Albumin Level 4.7 gm/dl (3.4-5.0); BUN Creatinine Ratio 13.3 (10-20); Bilirubin,Total 0.8 mg/dl (0.2-1.0); Calcium 9.5 mg/dl (8.6-10.3); Est GFR (African American) 117.2 ml/min; Est GFR (Non-African American) 101.1 ml/min; Globulin 3.6 gm/dl (2.5-4.0); Potassium 3.5 mmol/L (3.5-5.1); Total Protein 8.3 gm/dl (6.0-8.3)
[2023-02-24 08:44] LABS: Appearance Urine Clear (Clear); Bilirubin Urine Negative (Negative); Blood Urine Negative (Negative); Color Urine Yellow; Glucose Urine UA Negative (Negative); Ketones Urine Negative (Negative); Leukocyte Esterase Urine Negative (Negative); Nitrite Urine Negative (Negative); Protein Urine Negative (Negative); Specific Gravity Urine 1.002 (1.000-1.030); Urobilinogen Urine Negative (Negative); pH Urine 7.5 (4.5-7.5)
[2023-02-24] MEDS ORDERED: fentaNYL citrate PF 100 MCG/2 ML VIAL IV STA (09:17)
[2023-02-24] MEDS ORDERED: OPTIRAY 320 100ml IV ONE (09:32)
--- NOTE | 2023-02-24 09:54 | CT Scan Report ---
ABDOMEN AND PELVIS CT WITH IV CONTRAST CT DOSE: 1361.47 mGy.cm HISTORY: Left-sided abdominal pain. TECHNIQUE: Multiaxial CT images of the abdomen and pelvis were performed following the use of intrave nous contrast. A dose lowering technique was utilized adhering to the principles of ALARA. COMPARISON STUDY: Abdomen and pelvis CT 07/05/2017. FINDINGS: The lung bases are clear. No pneumoperitoneum. No pneumatosis. No acute fractures. Prior ch olecystectomy. No hepatic or splenic masses. The adrenal glands, pancreas, and kidneys are unremarkab le. No hydronephrosis. The main portal vein is patent. Normal caliber abdominal aorta. No retroperito brian or pelvic lymphadenopathy. Normal bladder. No bowel wall thickening or obstruction. Normal appen nathaniel. Prior hysterectomy. Lobular heterogeneous structure within the left adnexa best seen on image 28 8 measuring approximate 6.8 x 4.5 cm. This favors the left ovary. This contains a few small cysts wit h the dominant thick-walled cyst on image 291 measuring 2.9 cm. Small amount of hyperdense material s een anterior to the mildly enlarged left ovary on image 289 suggestive of blood clot. There is a smal l amount of fluid within the pelvis demonstrating a hematocrit level consistent with blood products. Therefore, these findings likely represent a ruptured left ovarian hemorrhagic cyst. Trace fluid with in the paracolic gutters. IMPRESSION: 1. A 6.8 x 4.5 cm lobular heterogeneous structure within the left adnexa which likely represents the left ovary. This contains a few cysts with the dominant thick-walled cyst measuring 2.9 cm. There is a small amount of hyperdense material seen anterior to the mildly enlarged left ovary suggestive of c lot as well as a small amount of hemoperitoneum within the deep pelvis. Therefore, these findings fav or a ruptured left ovarian hemorrhagic cyst. 2. Left ovarian torsion is considered less likely but also considered in the differential diagnosis. Clinical correlation recommended. 3. Prior hysterectomy. 4. No bowel wall thickening or obstruction. 5. Normal appendix. 6. Prior cholecystectomy. ACT 112: Negative or not required by law. Electronically signed by: Nicholas Ayala M.D. 02/24/2023 9:52 AM
[2023-02-24 12:00] LABS: Hematocrit (blood only) 38.8 % (37.0-47.0); Hemoglobin 13.7 g/dl (12.0-16.0)
--- NOTE | 2023-02-24 13:00 | Ultrasound Report ---
PELVIC ULTRASOUND, TRANSABDOMINAL AND TRANSVAGINAL HISTORY: Hemorrhagic left ovarian cyst versus torsion COMPARISON: Abdomen and pelvis CT 02/24/2023. FINDINGS: Uterus: Surgically absent. Right ovary: Surgically absent. Left ovary: 7.3 x 5.7 x 4.5 cm. This contains a few small follicles/cysts. There is also a 2.9 cm cys t containing internal echoes and thin septations suggestive of a hemorrhagic cyst. This corresponds t o the CT abnormality. Small to moderate amount of complex fluid surrounding the left ovary and within the pelvic cul-de-sac. This corresponds to the CT abnormality and is consistent with blood products/ hemoperitoneum. There is normal color flow within the left ovary. IMPRESSION: 1. The left ovary remains mildly enlarged and contains a few small follicles/cysts including a 2.9 cm complex cyst suggestive of a hemorrhagic cyst. 2. There is color flow identified within the left ovary. Therefore, ovarian torsion is considered les s likely but not entirely excluded. Clinical correlation recommended. 3. Small to moderate amount of complex fluid within the pelvic cul-de-sac and left adnexa consistent with blood products/hemoperitoneum. This favors a ruptured hemorrhagic cyst. 4. Prior hysterectomy and right oophorectomy. ACT 112: Negative or not required by law. Electronically signed by: Nicholas Ayala M.D. 02/24/2023 12:58 PM
--- NOTE | 2023-02-24 15:20 | OB/GYN Consultation ---
Date of Consultation February 24, 2023 Assessment & Plan (1) Hemorrhagic cyst of left ovary: Reviewed CT, ultrasound, labs with patient. CT scan showing likely hemorrhagic cyst, ultrasound showing doppler blood flow to ovary. Ovarian torsion is less likely. Drop in hemoglobin - not clear whether this is hemodilution vs active bleeding. Plan to admit for observation to continue to monitor symptoms, vitals, abdominal exam, and repeat H/H. Patient agreeable with plan. History of Present Illness Reason for Consultation: LLQ pain Requesting Physician: Nixon Resendiz History of Present Illness 37yo came to ER with LLQ pain since yesterday. Thought this was gas pains or heartburn pains, but Pepcid and anti-gas medications did not work. She has been eating/drinking ok. Hydrates well at home and was drinking lots of fluids before coming in. No nausea/vomiting. History of x 2, then in [address] Varela, followed by right oophorectomy in 2019. Left ovary remains. She was told she had significant adhesions in her abdomen. Allergies Allergy/AdvReac Type Severity Reaction Status Date / Time adhesive Allergy Unknown blister Verified 02/24/23 10:30 Home Medications Medication Instructions Recorded Confirmed Type inulin 2 gram chewable tablet 4 g PO QAM 02/24/23 02/24/23 History (Fiber Gummies) lactobacillus combination no.4 3 3,000 mmu cells PO DAILY 02/24/23 02/24/23 History billion cell capsule (Probiotic) linaclotide 145 mcg capsule 145 mcg PO DAILY 02/24/23 02/24/23 History (Linzess) [id number]-other oivsj0r-wejr 2 cap PO QAM 02/24/23 02/24/23 History oil 350 mg- 400 mg capsule omeprazole 20 mg capsule,delayed 40 mg PO QAM 02/24/23 02/24/23 History release potassium chloride 10 mEq 25 meq PO DAILY 02/24/23 02/24/23 History tablet,extended release Patient History Medical History Radha's thyroiditis Hypothyroidism Intra-abdominal adhesions Surgical History History of 2 sections History of partial hysterectomy Hx of cholecystectomy S/P laparoscopic procedure adhesion release Social History (Updated 02/24/23 @ 08:24 by Nixon Resendiz) Smoking Status: Former smoker Hx Alcohol Use: No Hx Substance Use: No Preferred Language: [place] Communication Ability: Effective 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 Sitting up in bed, talking, able to move on her own. Abd: soft, mild LLQ tenderness. Not rigid or distended. No rebound or guarding. Ext: no edema Results & Data Vital Signs (Past 12 Hours) Vital Signs Temp Pulse Pulse Resp BP BP Pulse Ox 02/24/23 15:13 02/24/23 14:50 62 16 99 02/24/23 14:45 70 20 99 02/24/23 14:45 113/79 02/24/23 14:40 57 L 12 99 02/24/23 14:30 65 12 99 02/24/23 14:22 69 18 02/24/23 14:10 57 L 14 98 02/24/23 14:00 56 L 15 98 02/24/23 13:50 57 L 13 98 02/24/23 13:40 61 20 98 02/24/23 13:30 65 14 99 02/24/23 13:20 67 20 98 02/24/23 13:10 77 15 100 02/24/23 13:00 78 17 100 02/24/23 12:50 61 14 99 02/24/23 12:40 64 14 99 02/24/23 12:30 62 20 99 02/24/23 12:27 110/72 02/24/23 11:40 68 17 97 02/24/23 11:30 66 14 97 02/24/23 11:20 66 14 97 02/24/23 13:00 76 16 110/72 97 02/24/23 11:11 113/70 02/24/23 11:11 67 16 96 02/24/23 11:10 98 02/24/23 11:00 59 L 13 97 02/24/23 10:50 63 13 97 02/24/23 10:40 68 14 98 02/24/23 10:30 73 12 98 02/24/23 10:20 73 15 100 02/24/23 10:10 74 20 99 02/24/23 10:00 76 18 99 02/24/23 09:50 76 18 97 02/24/23 09:41 100 02/24/23 09:20 73 24 100 02/24/23 09:10 68 21 100 02/24/23 09:00 69 23 100 02/24/23 08:50 79 23 100 02/24/23 08:45 73 22 100 02/24/23 08:45 135/88 02/24/23 08:40 71 15 99 02/24/23 08:31 80 13 02/24/23 08:31 139/85 02/24/23 08:20 75 14 97 02/24/23 08:19 78 22 95 02/24/23 09:25 82 12 135/88 98 02/24/23 08:33 70 02/24/23 07:25 76 22 133/85 97 02/24/23 07:29 36.7 C 96 H 18 148/84 H 99 O2 Del Method 02/24/23 15:13 Room Air 02/24/23 14:50 02/24/23 14:45 02/24/23 14:45 02/24/23 14:40 02/24/23 14:30 02/24/23 14:22 02/24/23 14:10 02/24/23 14:00 02/24/23 13:50 02/24/23 13:40 02/24/23 13:30 02/24/23 13:20 02/24/23 13:10 02/24/23 13:00 02/24/23 12:50 02/24/23 12:40 02/24/23 12:30 02/24/23 12:27 02/24/23 11:40 02/24/23 11:30 02/24/23 11:20 02/24/23 13:00 Room Air 02/24/23 11:11 02/24/23 11:11 02/24/23 11:10 02/24/23 11:00 02/24/23 10:50 02/24/23 10:40 02/24/23 10:30 02/24/23 10:20 02/24/23 10:10 02/24/23 10:00 02/24/23 09:50 02/24/23 09:41 02/24/23 09:20 02/24/23 09:10 02/24/23 09:00 02/24/23 08:50 02/24/23 08:45 02/24/23 08:45 02/24/23 08:40 02/24/23 08:31 02/24/23 08:31 02/24/23 08:20 02/24/23 08:19 02/24/23 09:25 Room Air 02/24/23 08:33 02/24/23 07:25 Room Air 02/24/23 07:29 Room Air PG Care Time/CCT Total # of Minutes Spent Total Time Spent with Patient: Total time spent is greater than 50% in coordination of care (as documented) at patient's floor/unit and/or counseling patient: Coding Level of Care Code 74506 OFFICE CONSULT LVL M Diagnoses Hemorrhagic cyst of left ovary N83.202
--- NOTE | 2023-02-24 15:21 | Electrocardiogram Report ---
Test Reason : Blood Pressure : / mmHG Vent. Rate : 075 BPM Atrial Rate : 075 BPM P-R Int : 138 ms QRS Dur : 086 ms QT Int : 396 ms P-R-T Axes : 073 015 040 degrees QTc Int : 442 ms Normal sinus rhythm Low voltage QRS Borderline ECG No previous ECGs available Confirmed by Donal Juarez ([id number]) on 02/24/2023 3:21:14 PM Referred By: REFERRED SELF Confirmed By:Donal Juarez
[2023-02-24] MEDS ORDERED: ONDANSETRON INJ 2 MG/ML 2 ML VIAL IV PRN (17:12)
[2023-02-24 17:34] LABS: Basophils # (auto) 0.06 K/uL (0-0.2); Basophils % (auto) 0.7 %; Eosinophils # (auto) 0.04 K/uL (0-0.50); Eosinophils % (auto) 0.5 %; Hematocrit (blood only) 38.8 % (37.0-47.0); Hemoglobin 13.5 g/dl (12.0-16.0); Immature Granulocytes # (auto) 0.02 K/uL (0.01-0.20); Immature Granulocytes % (auto) 0.2 %; Lymphocytes # (auto) 1.87 K/uL (1.2-3.4); Lymphocytes % (auto) 22.3 %; Mean Corpuscular Hemoglobin 32.1 pg (25.0-34.0); Mean Corpuscular Hgb Conc 34.8 g/dL (32.0-36.0); Mean Corpuscular Volume 92.4 fL (80.0-100.0); Mean Platelet Volume 10.2 fL (9.4-12.4); Monocytes # (auto) 0.67 K/uL (0.11-0.59); Neutrophils # (auto) 5.74 K/uL (1.40-6.50); Neutrophils % (auto) 68.3 %; Platelet Count 207 K/uL (130-400); RDW Coefficient of Variation 11.5 % (11.5-14.5); RDW Standard Deviation 39.1 fL (36.4-46.3)
[2023-02-24] MEDS ORDERED: ACETAMINOPHEN 500 MG TAB PO STA (18:11)
[2023-02-24] MEDS ORDERED: IBUPROFEN 800 MG TAB PO STA (18:11)
--- NOTE | 2023-02-24 18:26 | History & Physical Report ---
Date of Service February 24, 2023 Assessment & Plan (1) Hemorrhagic cyst of left ovary: Plan: Admit for continued observation. Plan to recheck H/H and abdominal exam. Suspect hemorrhagic cyst rather than ovarian torsion given imaging findings. Continue to monitor vital signs. Patient agreeable. Admission and Anticipated Discharge Date Admission Date: February 24, 2023 History of Present Illness Chief Complaint: LLQ pain Primary Care Provider: Debby Joy, DO 37yo came to ER with LLQ pain since yesterday. Thought this was gas pains or heartburn pains, but Pepcid and anti-gas medications did not work. She has been eating/drinking ok. Hydrates well at home and was drinking lots of fluids before coming in. No nausea/vomiting. History of x 2, then in [address] Varela, followed by right oophorectomy in 2019. Left ovary remains. She was told she had significant adhesions in her abdomen. CT scan abdomen/pelvis in ER showed a 6.8 x 4.5 cm lobular heterogeneous structure within the left adnexa which likely represents the left ovary. This contains a few cysts with the dominant thick-walled cyst measuring 2.9 cm. There is a small amount of hyperdense material seen anterior to the mildly enlarged left ovary suggestive of clot as well as a small amount of hemoperitoneum within the deep pelvis. Therefore, these findings favor a ruptured left ovarian hemorrhagic cyst. Pelvic US in ER showed enlarged left ovary with 2.9cm complex hemorrhagic cyst. Color flow to left ovary. Small to moderate amount of hemoperitoneum, favoring ruptured hemorrhagic cyst. Hemoglobin drop 15.9 - 13.7. Allergies Allergy/AdvReac Type Severity Reaction Status Date / Time adhesive Allergy Unknown blister Verified 02/24/23 10:30 Home Medications Medication Instructions Recorded Confirmed Type inulin 2 gram chewable tablet 4 g PO QAM 02/24/23 02/24/23 History (Fiber Gummies) lactobacillus combination no.4 3 3,000 mmu cells PO DAILY 02/24/23 02/24/23 History billion cell capsule (Probiotic) linaclotide 145 mcg capsule 145 mcg PO DAILY 02/24/23 02/24/23 History (Linzess) [id number]-mni-rxk-other uzotg2v-otpt 2 cap PO QAM 02/24/23 02/24/23 History oil 350 mg- 400 mg capsule omeprazole 20 mg capsule,delayed 40 mg PO QAM 02/24/23 02/24/23 History release potassium chloride 10 mEq 25 meq PO DAILY 02/24/23 02/24/23 History tablet,extended release Patient History Medical History Radha's thyroiditis Hypothyroidism Intra-abdominal adhesions Surgical History History of 2 sections History of partial hysterectomy Hx of cholecystectomy S/P laparoscopic procedure adhesion release Social History (Updated 02/24/23 @ 08:24 by Nixon Resendiz) Smoking Status: Former smoker Hx Alcohol Use: No Hx Substance Use: No Preferred Language: Romanian Communication Ability: Effective 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 Sitting up in bed, talking, able to move on her own. CV: RRR L: good breathing effort, clear lung sounds Abd: soft, mild LLQ tenderness. Not rigid or distended. No rebound or guarding. Ext: no edema Results & Data Vital Signs (Past 12 Hours) Vital Signs Temp Pulse Pulse Resp BP BP Pulse Ox 02/24/23 14:45 36.9 C 60 18 121/77 97 02/24/23 15:13 02/24/23 14:50 62 16 99 02/24/23 14:45 70 20 99 02/24/23 14:45 113/79 02/24/23 14:40 57 L 12 99 02/24/23 14:30 65 12 99 02/24/23 14:22 69 18 02/24/23 14:10 57 L 14 98 02/24/23 14:00 56 L 15 98 02/24/23 13:50 57 L 13 98 02/24/23 13:40 61 20 98 02/24/23 13:30 65 14 99 02/24/23 13:20 67 20 98 02/24/23 13:10 77 15 100 02/24/23 13:00 78 17 100 02/24/23 12:50 61 14 99 02/24/23 12:40 64 14 99 02/24/23 12:30 62 20 99 02/24/23 12:27 110/72 02/24/23 11:40 68 17 97 02/24/23 11:30 66 14 97 02/24/23 11:20 66 14 97 02/24/23 13:00 76 16 110/72 97 02/24/23 11:11 113/70 02/24/23 11:11 67 16 96 02/24/23 11:10 98 02/24/23 11:00 59 L 13 97 02/24/23 10:50 63 13 97 02/24/23 10:40 68 14 98 02/24/23 10:30 73 12 98 02/24/23 10:20 73 15 100 02/24/23 10:10 74 20 99 02/24/23 10:00 76 18 99 02/24/23 09:50 76 18 97 02/24/23 09:41 100 02/24/23 09:20 73 24 100 02/24/23 09:10 68 21 100 02/24/23 09:00 69 23 100 02/24/23 08:50 79 23 100 02/24/23 08:45 73 22 100 02/24/23 08:45 135/88 02/24/23 08:40 71 15 99 02/24/23 08:31 80 13 02/24/23 08:31 139/85 02/24/23 08:20 75 14 97 02/24/23 08:19 78 22 95 02/24/23 09:25 82 12 135/88 98 02/24/23 08:33 70 02/24/23 07:25 76 22 133/85 97 02/24/23 07:29 36.7 C 96 H 18 148/84 H 99 O2 Del Method 02/24/23 14:45 Room Air 02/24/23 15:13 Room Air 02/24/23 14:50 02/24/23 14:45 02/24/23 14:45 02/24/23 14:40 02/24/23 14:30 02/24/23 14:22 02/24/23 14:10 02/24/23 14:00 02/24/23 13:50 02/24/23 13:40 02/24/23 13:30 02/24/23 13:20 02/24/23 13:10 02/24/23 13:00 02/24/23 12:50 02/24/23 12:40 02/24/23 12:30 02/24/23 12:27 02/24/23 11:40 02/24/23 11:30 02/24/23 11:20 02/24/23 13:00 Room Air 02/24/23 11:11 02/24/23 11:11 02/24/23 11:10 02/24/23 11:00 02/24/23 10:50 02/24/23 10:40 02/24/23 10:30 02/24/23 10:20 02/24/23 10:10 02/24/23 10:00 02/24/23 09:50 02/24/23 09:41 02/24/23 09:20 02/24/23 09:10 02/24/23 09:00 02/24/23 08:50 02/24/23 08:45 02/24/23 08:45 02/24/23 08:40 02/24/23 08:31 02/24/23 08:31 02/24/23 08:20 02/24/23 08:19 02/24/23 09:25 Room Air 02/24/23 08:33 02/24/23 07:25 Room Air 02/24/23 07:29 Room Air Coding Level of Care Code None Diagnoses Hemorrhagic cyst of left ovary N83.202
--- NOTE | 2023-02-24 18:36 | Gynecologic Progress Note ---
Date of Service February 24, 2023 Assessment & Plan Admission and Anticipated Discharge Date Admission Date: February 24, 2023 Subjective Patient sitting up in bed, requests pain medication for 5/10 pain. Abdominal exam is the same - mild LLQ tenderness, no rebound/guarding. No pain on distraction. H/H stable. Vitals have been stable throughout. Discussed with patient that will allow her to eat, will take pain medication. If all goes well, will plan to DC home with plan for followup in office in 6-8w for repeat US and recheck of symptoms. Results & Data Vital Signs (Past 12 Hours) Vital Signs Temp Pulse Pulse Resp BP BP Pulse Ox 02/24/23 14:45 36.9 C 60 18 121/77 97 02/24/23 15:13 02/24/23 14:50 62 16 99 02/24/23 14:45 70 20 99 02/24/23 14:45 113/79 02/24/23 14:40 57 L 12 99 02/24/23 14:30 65 12 99 02/24/23 14:22 69 18 02/24/23 14:10 57 L 14 98 02/24/23 14:00 56 L 15 98 02/24/23 13:50 57 L 13 98 02/24/23 13:40 61 20 98 02/24/23 13:30 65 14 99 02/24/23 13:20 67 20 98 02/24/23 13:10 77 15 100 02/24/23 13:00 78 17 100 02/24/23 12:50 61 14 99 02/24/23 12:40 64 14 99 02/24/23 12:30 62 20 99 02/24/23 12:27 110/72 02/24/23 11:40 68 17 97 02/24/23 11:30 66 14 97 02/24/23 11:20 66 14 97 02/24/23 13:00 76 16 110/72 97 02/24/23 11:11 113/70 02/24/23 11:11 67 16 96 02/24/23 11:10 98 02/24/23 11:00 59 L 13 97 02/24/23 10:50 63 13 97 02/24/23 10:40 68 14 98 02/24/23 10:30 73 12 98 02/24/23 10:20 73 15 100 02/24/23 10:10 74 20 99 02/24/23 10:00 76 18 99 02/24/23 09:50 76 18 97 02/24/23 09:41 100 02/24/23 09:20 73 24 100 02/24/23 09:10 68 21 100 02/24/23 09:00 69 23 100 02/24/23 08:50 79 23 100 02/24/23 08:45 73 22 100 02/24/23 08:45 135/88 02/24/23 08:40 71 15 99 02/24/23 08:31 80 13 02/24/23 08:31 139/85 02/24/23 08:20 75 14 97 02/24/23 08:19 78 22 95 02/24/23 09:25 82 12 135/88 98 02/24/23 08:33 70 02/24/23 07:25 76 22 133/85 97 02/24/23 07:29 36.7 C 96 H 18 148/84 H 99 O2 Del Method 02/24/23 14:45 Room Air 02/24/23 15:13 Room Air 02/24/23 14:50 02/24/23 14:45 02/24/23 14:45 02/24/23 14:40 02/24/23 14:30 02/24/23 14:22 02/24/23 14:10 02/24/23 14:00 02/24/23 13:50 02/24/23 13:40 02/24/23 13:30 02/24/23 13:20 02/24/23 13:10 02/24/23 13:00 02/24/23 12:50 02/24/23 12:40 02/24/23 12:30 02/24/23 12:27 02/24/23 11:40 02/24/23 11:30 02/24/23 11:20 02/24/23 13:00 Room Air 02/24/23 11:11 02/24/23 11:11 02/24/23 11:10 02/24/23 11:00 02/24/23 10:50 02/24/23 10:40 02/24/23 10:30 02/24/23 10:20 02/24/23 10:10 02/24/23 10:00 02/24/23 09:50 02/24/23 09:41 02/24/23 09:20 02/24/23 09:10 02/24/23 09:00 02/24/23 08:50 02/24/23 08:45 02/24/23 08:45 02/24/23 08:40 02/24/23 08:31 02/24/23 08:31 02/24/23 08:20 02/24/23 08:19 02/24/23 09:25 Room Air 02/24/23 08:33 02/24/23 07:25 Room Air 02/24/23 07:29 Room Air
[2023-02-25] MEDS ORDERED: PANTOprazole 40 MG TAB PO SCH (09:00)
[2023-02-25] MEDS ORDERED: OMEGA-3 (PURIFIED FISH OIL) 1 GM CAP PO SCH (09:00)
[2023-02-25] MEDS ORDERED: LINACLOTIDE 145 MCG CAPSULE PO SCH (09:00)
== END 2023-02-24 20:40 | disposition home or self-care (01) | DRG 761 ==
LOC: 40.0 13:43